=== PATIENT | male | born 1985 | race African-American/Black ===

== ENCOUNTER 2019-12-26 09:32 | Emergency (ER) | payer MEDICAID, MEDICARE ==
[~2019-12-26] VITALS: Ht 190.5 cm; Wt 87.1 kg
[2019-12-26 09:38] VITALS: BP 126/73
--- NOTE | 2019-12-26 09:52 | NUR ---
RIGHT KNEE LACERATION, RIGHT MIDDLE FINGER DEFORMITY AND SWELLING, ALSO WANT COVID TEST (NO SYMPTOMS)
[2019-12-26] MEDS ORDERED: NEOSPORIN OINT. PKT 1 PACKET ONE (10:11)
[2019-12-26] MEDS ORDERED: DIPH,PERTUSS(ACELL),TET VAC/PF 0.5 ML IM-VACC ONE ×2 (10:11→10:30)
--- NOTE | 2019-12-26 10:26 | NUR ---
MEDICATED PER [facility] (TDAP AND NEOSPORIN (ALONG WITH WOUND CARE)) PATIENT PROVIDED WITH EXTRA WOUND SUPPLIES WELL
[2019-12-26] MEDS ORDERED: NEOSPORIN OINT. PKT 1 PACKET TP ONE (10:30)
--- NOTE | 2019-12-26 10:40 | NUR ---
XRAY AT BEDSIDE
--- NOTE | 2019-12-26 11:14 | NUR ---
ALL TESTING RESULTED/REVIEWED. PLACED FOR RECHECK PATIENT DENIES COMPLAINTS. UPDATED ON ESTIMATED POC
== END 2019-12-26 11:54 | disposition home or self-care (01) ==
LOC: ED 10:52
DX: S62.632A Displaced fracture of distal phalanx of right middle finger, initial encounter for closed fracture (principal); S81.011A Laceration without foreign body, right knee, initial encounter; F17.210 Nicotine dependence, cigarettes, uncomplicated; W23.0XXA Caught, crushed, jammed, or pinched between moving objects, initial encounter; Y93.89 Activity, other specified; Y92.488 Other paved roadways as the place of occurrence of the external cause; Y99.8 Other external cause status
CPT/HCPCS: 90471; 90715; 99283

== ENCOUNTER 2020-01-05 08:57 | Emergency (ER) | payer MEDICAID ==
[2020-01-05] MEDS ORDERED: ACETAMINOPHEN 500 MG TABLET ONE (10:28)
[2020-01-05] MEDS ORDERED: ACETAMINOPHEN 500 MG TABLET PO ONE (10:30)
[2020-01-05] MEDS ORDERED: PLEASE ENTER WEIGHT MC SCH (10:30)
--- NOTE | 2020-01-05 10:36 | NUR ---
Patient/Caregiver given discharge instructions and they have confirmed that they understand the instructions. Patient ambulatory with steady gait.
== END 2020-01-05 10:38 | disposition home or self-care (01) ==
LOC: ED 09:32
DX: S69.91XA Unspecified injury of right wrist, hand and finger(s), initial encounter (principal); M66.9 Spontaneous rupture of unspecified tendon; W19.XXXA Unspecified fall, initial encounter; Y93.89 Activity, other specified; Y92.488 Other paved roadways as the place of occurrence of the external cause; Y99.8 Other external cause status
CPT/HCPCS: 29130; 82962; 99283

== ENCOUNTER 2020-01-23 08:46 | Emergency (ER) | payer MEDICAID, MEDICARE ==
[~2020-01-23] VITALS: Ht 190.5 cm; Wt 87.3 kg
[2020-01-23 08:49] VITALS: BP 124/68
[2020-01-23] MEDS ORDERED: HYDROcodone/APAP 5/325 TABLET PO ONE (09:30)
[2020-01-23] MEDS ORDERED: HYDROcodone/APAP 5/325 TABLET ONE (09:56)
== END 2020-01-23 10:18 | disposition home or self-care (01) ==
LOC: ED 09:12
DX: S62.632A Displaced fracture of distal phalanx of right middle finger, initial encounter for closed fracture (principal); M20.011 Mallet finger of right finger(s); L73.2 Hidradenitis suppurativa; F17.200 Nicotine dependence, unspecified, uncomplicated; W57.XXXA Bitten or stung by nonvenomous insect and other nonvenomous arthropods, initial encounter; Y93.89 Activity, other specified; Y92.89 Other specified places as the place of occurrence of the external cause; Y99.8 Other external cause status
CPT/HCPCS: 29130; 99283

== ENCOUNTER 2020-01-25 00:12 | Emergency (ER) | payer MEDICAID ==
[~2020-01-25] VITALS: Ht 191.8 cm; Wt 84.7 kg
[2020-01-25 00:15] VITALS: BP 119/80
--- NOTE | 2020-01-25 01:28 | NUR ---
PT. PROVIDED WITH JUICE PER REQUEST AND AFTER OK FROM [facility]. AWAITING I&D AT THIS TIME.
[2020-01-25] MEDS ORDERED: LIDOCAINE 1%, 10ML INFIL ONE (01:30)
--- NOTE | 2020-01-25 02:04 | NUR ---
REPORT TO ELIZABETH YOST.
== END 2020-01-25 02:34 | disposition home or self-care (01) ==
LOC: ED 01:06
DX: L02.411 Cutaneous abscess of right axilla (principal); J30.89 Other allergic rhinitis; J02.9 Acute pharyngitis, unspecified; R09.81 Nasal congestion; R50.9 Fever, unspecified; R05 Cough; F17.200 Nicotine dependence, unspecified, uncomplicated
CPT/HCPCS: 10060; 99282

== ENCOUNTER 2020-01-26 11:36 | Emergency (ER) | payer MEDICAID ==
[~2020-01-26] VITALS: Ht 190.5 cm; Wt 85.0 kg
--- NOTE | 2020-01-26 11:49 | NUR ---
CALLED FOR TRIAGE, NO ANSWER
--- NOTE | 2020-01-26 13:09 | NUR ---
pt brougth back from triage with anxiety, disorganized thoughts. "I dont feel anything"
--- NOTE | 2020-01-26 13:41 | NUR ---
ADALBERTO ALEJANDRO AT BEDSIDE FOR EVALUATION.
[2020-01-26] MEDS ORDERED: ZIPRASIDONE 20MG CAPSULE ONE (13:43)
[2020-01-26] MEDS ORDERED: LORazepam 1MG TABLET ONE (13:44)
--- NOTE | 2020-01-26 13:48 | NUR ---
MEDICATIONS NOT SCANNED IN ROOM DUE TO PATIENTS ANXIETY AND AGITATION. 5 RIGHTS VERIFIED.
[2020-01-26] MEDS ORDERED: LORazepam 1MG TABLET PO ONE (14:00)
[2020-01-26] MEDS ORDERED: ZIPRASIDONE 20MG CAPSULE PO ONE (14:00)
--- NOTE | 2020-01-26 14:02 | NUR ---
DISCHARGE AND POC DISCUSSED
--- NOTE | 2020-01-26 14:10 | NUR ---
ADALBERTO ALEJANDRO UPDATED ON PTS AGITATION AND NEW THOUGHTS, PSYCH CONSULT ORDERED.
[2020-01-26 14:24] LABS: BASOPHILS # (AUTO) 0.15 x10^3/uL (0-0.1); BASOPHILS % (AUTO) 2 % (0-1); EOSINOPHILS # (AUTO) 0.08 x10^3/uL (0-0.4); EOSINOPHILS % (AUTO) 1 % (1-7); LYMPHOCYTES # (AUTO) 2.24 x10^3/uL (1-3.4); LYMPHOCYTES % (AUTO) 24 % (22-44); MD NO; MEAN CORPUSCULAR HEMOGLOBIN 29.9 pg (27.5-34.5); MEAN CORPUSCULAR HGB CONC 33.9 g/dL (33.2-36.2); MEAN CORPUSCULAR VOLUME 88.1 fL (81-97); MEAN PLATELET VOLUME 7.4 fL (7.4-10.4); MONOCYTES # (AUTO) 0.63 x10^3/uL (0.2-0.8); MONOCYTES % (AUTO) 7 % (2-9); NEUTROPHILS # (AUTO) 6.36 x10^3/uL (1.8-6.8); NEUTROPHILS % (AUTO) 67 % (42-75); PLATELET COUNT 364 x10^3/uL (130-400); RED BLOOD COUNT 4.34 x10^6/uL (4.38-5.82); RED CELL DISTRIBUTION WIDTH 12.8 % (9.4-14.8)
[2020-01-26 14:32] LABS: MICROSCOPIC NOT IND
[2020-01-26 14:36] LABS: ALANINE AMINOTRANSFERASE 53 U/L (12-78); ALBUMIN 3.2 g/dL (3.4-5.0); ANION GAP 6 mmol/L (5-15); CALCIUM 8.7 mg/dL (8.5-10.1); CHLORIDE 105 mmol/L (98-107); CREATININE 1.35 mg/dL (0.7-1.3); SALICYLATE LEVEL 2.1 mg/dL (2.8-20.0)
[2020-01-26 14:43] LABS: AMPHETAMINE SCREEN, URINE Positive (Negative); BARBITURATE SCREEN, URINE Negative (Negative); BENZODIAZEPINE SCREEN, URINE Negative (Negative); CANNABINOID SCREEN, URINE Positive (Negative); COCAINE SCREEN, URINE Negative (Negative); METHADONE SCREEN, URINE Negative (Negative); OPIATE SCREEN, URINE Negative (Negative)
[2020-01-26 14:53] LABS: ALKALINE PHOSPHATASE 73 U/L (45-117); BILIRUBIN,TOTAL 0.3 mg/dL (0.2-1.0); TOTAL PROTEIN 6.8 g/dL (6.4-8.2)
[2020-01-26 15:23] VITALS: BP 118/73
--- NOTE | 2020-01-26 15:30 | NUR ---
ADALBERTO ALEJANDRO AT BEDSIDE TO DISCUSS POC
--- NOTE | 2020-01-26 15:48 | NUR ---
DISCHARGE INSTRUCTIONS DISCUSSED
--- NOTE | 2020-01-26 16:07 | NUR ---
PT REFUSED DISCHARGE. 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
== END 2020-01-26 16:10 | disposition home or self-care (01) ==
LOC: ED 15:09
DX: F32.3 Major depressive disorder, single episode, severe with psychotic features (principal); F60.0 Paranoid personality disorder; R45.1 Restlessness and agitation; J02.9 Acute pharyngitis, unspecified; R05 Cough; Z91.14 Patient's other noncompliance with medication regimen
CPT/HCPCS: 36415; 80053; 80307; 81003; 84443; 85025; 99284

== ENCOUNTER 2020-02-11 10:00 | Emergency (ER) | payer MEDICAID ==
[~2020-02-11] VITALS: Ht 190.5 cm; Wt 87.9 kg
[2020-02-11 11:54] VITALS: BP 122/74
== END 2020-02-11 12:57 | disposition home or self-care (01) ==
LOC: ED 10:22
DX: S43.101A Unspecified dislocation of right acromioclavicular joint, initial encounter (principal); M19.011 Primary osteoarthritis, right shoulder; M50.322 Other cervical disc degeneration at C5-C6 level; M25.561 Pain in right knee; M25.562 Pain in left knee; M25.521 Pain in right elbow; M25.522 Pain in left elbow; F17.290 Nicotine dependence, other tobacco product, uncomplicated; V19.9XXA Pedal cyclist (driver) (passenger) injured in unspecified traffic accident, initial encounter; Y93.89 Activity, other specified; Y92.488 Other paved roadways as the place of occurrence of the external cause; Y99.8 Other external cause status
CPT/HCPCS: 29105; 72050; 93005; 99284